=== PATIENT | female | born 1965 | race Caucasian/White ===

== ENCOUNTER 2017-08-16 15:21 | Emergency (ER) | payer OTHER ==
[~2017-08-16] VITALS: Ht 160 cm; Wt 65.8 kg
[~2017-08-16 15:21] MED LIST: PROTONIX40 M3 PO; VISTARIL50 M1 PO
--- NOTE | 2017-08-16 16:42 | RADIOLOGY REPORT ---
EXAMINATION: XR CHEST CLINICAL INFORMATION: Cough. Yellow sputum. COMPARISON: None TECHNIQUE: 2 views of the chest were obtained. FINDINGS: No significant abnormality is noted involving the heart, lungs, mediastinum, bony thorax or soft tissues. IMPRESSION: Unremarkable examination.
[2017-08-16 19:56] LABS: ABSOLUTE BASOPHIL COUNT 0 /CUMM (0.0-0.2); ABSOLUTE EOSINOPHIL COUNT 0 /CUMM (0.0-0.7); ABSOLUTE GRANULOCYTE CT 4.1 /CUMM (1.4-6.5); ABSOLUTE LYMPH COUNT 1.5 /CUMM (1.2-3.4); ABSOLUTE MONOCYTE COUNT 1.1 /CUMM (0.10-0.60); BASOPHIL % 0.7 % (0.0-2.0); EOSINOPHIL % 0.1 % (0-5); HEMATOCRIT 44.9 % (37-47); MEAN CORPUSCULAR HGB 31.3 PG (27.0-31.0); MEAN CORPUSCULAR HGB CONC 33.7 G/DL (33.0-37.0); MEAN CORPUSCULAR VOLUME 92.9 FL (81.0-99.0); MEAN PLATELET VOLUME 7.2 FL (7.4-10.4); PLATELET COUNT 220 /CUMM (130-400); RED BLOOD CELL CT 4.84 /CUMM (4.20-5.40); WHITE BLOOD CELL COUNT 6.8 /CUMM (4.8-10.8)
--- NOTE | 2017-08-16 20:58 | CT SCAN REPORT ---
EXAMINATION: CT HEAD WITHOUT CONTRAST CLINICAL INFORMATION: 52-year-old woman with new onset of headache. COMPARISON: None TECHNIQUE: Contiguous axial imaging was performed from the skull base to vertex without intravenous administration of contrast. DLP: 598 mGy-cm FINDINGS: There is no evidence of acute intracranial hemorrhage or territorial infarction. No abnormal mass effect or midline shift is seen. Aceves to white matter differentiation is well preserved. No extra-axial fluid collections are identified. The ventricles are normal in size. There is no abnormal attenuation within the brain parenchyma. The osseous structures and soft tissues are normal. A small amount of layering fluid is seen in the left maxillary sinus. IMPRESSION: No acute intracranial pathology. Left maxillary sinus disease.
--- NOTE | 2017-08-16 21:08 | ED HEAD/FACIAL INJ COMPLAINT ---
History of Present Illness General Chief Complaint: Headache Stated Complaint: SIB URGENT CARE RIGHT SIDE OF HEAD PAIN Source: patient, old records Exam Limitations: no limitations Vital Signs & Intake/Output Vital Signs & Intake/Output Vital Signs Date Time Temp Pulse Resp B/P B/P Pulse O2 O2 Flow FiO2 Mean Ox Delivery Rate 08/16 2146 98.6 89 18 142/64 99 Room Air 08/16 2128 97 Room Air 08/16 1850 99.0 08/16 1839 99.1 102 18 148/72 95 Room Air 08/16 1542 101.5 114 18 126/92 99 Room Air ED Intake and Output 08/17 0000 08/16 1200 Intake Total Output Total Balance Patient 145 lb Weight Allergies Coded Allergies: No Known Allergies (02/09/17) Reconcile Medications Amoxicillin 875 MG TABLET 1 TAB PO BID sinusitis Hydroxyzine Pamoate (Vistaril) 50 MG CAPSULE 1 CAP PO QPM PRN INSOMNIA Ibuprofen 600 MG TABLET 1 TAB PO Q6P PRN pain, fever with food Pantoprazole Sodium (Protonix) 40 MG TABLET. 1 TAB PO DAILY gerd Triage Note: 52 YEAR OLD FEMALE TO ER WITH COMPLAINTS OF SUDDEN ON SET OF R SIDE HEAD PAIN THAT STARTED YESTERDAY , LIGHT SENSITIVE, VOMITTED ON MONDAY. ALSO STATES THAT SHE HAS HAD A COUGH YELLOW SPUTUM THAT STARTED ON MONDAY AND CHILLS, TEMP 101.5 AT THIS TIME, MEDICATED WITH TYLENOL PER ORDER. Triage Nurses Notes Reviewed? yes Onset: 2 days ago Severity: moderate Location: temporal Loss of Consciousness: no loss of consciousness Associated Symptoms: cough, fever/chills, headaches, nausea/vomiting LMP (ages 10-50): post menopausal : No Patient currently breastfeeds: No HPI: 2 days prior to admission patient complains of nasal congestion productive cough of yellow sputum nausea and vomiting. Several hours prior to admission patient complained of headache light sensitivity and chills. She denies diarrhea abdominal pain chest pain shortness of breath dysuria rash bleeding. Past History Travel History Traveled to [place] past 21 day No Medical History Any Pertinent Medical History? none Neurological: NONE EENT: NONE Cardiovascular: NONE Respiratory: NONE Gastrointestinal: NONE Renal: NONE Musculoskeletal: NONE Psychiatric: NONE Endocrine: NONE Blood Disorders: NONE Cancer(s): NONE TAXICAB DRIVER/Reproductive: NONE Surgical History Surgical History: none Psychosocial History What is your primary language [place] Tobacco Use: Never used ETOH Use: denies use Illicit Drug Use: denies illicit drug use Family History Hx Contributory? No Review of Systems Review of Systems Constitutional: Reports: see HPI, chills, fever (in ED). EENTM: Reports: see HPI, nasal congestion. Respiratory: Reports: see HPI, cough, sputum production. Cardiovascular: Reports: no symptoms. GI: Reports: see HPI, nausea, vomiting. Genitourinary: Reports: no symptoms. Musculoskeletal: Reports: no symptoms. Skin: Reports: no symptoms. Neurological/Psychological: Reports: no symptoms. Hematologic/Endocrine: Reports: no symptoms. Immunologic/Allergic: Reports: no symptoms. All Other Systems: Reviewed and Negative Physical Exam Physical Exam General Appearance: well developed/nourished, alert, awake, anxious, mild distress Head: atraumatic, normal appearance, tenderness (sinus) Eyes: Bilateral: normal appearance, PERRL, EOMI. Ears, Nose, Throat: normal pharynx, normal ENT inspection, hearing grossly normal Neck: normal inspection, supple, full range of motion, lymphadenopathy (R), lymphadenopathy (L), no midline tenderness Respiratory: normal breath sounds, chest non-tender, no respiratory distress, quiet respiration, lungs clear Cardiovascular: regular rate/rhythm, normal peripheral pulses, norml femoral pulses equa Gastrointestinal: normal bowel sounds, soft, non-tender, no organomegaly Back: normal inspection, normal range of motion, no vertebral tenderness Extremities: normal inspection, normal capillary refill, normal range of motion, no edema Psychiatric: awake, alert, oriented x 3 Cranial Nerves: normal hearing, normal speech, PERRL Coordination/Gait: normal finger to nose, normal gait Motor/Sensory: no motor/sensory deficits Reflexes: 2+: bicep (R), bicep (L). Skin: intact, normal color, warm/dry Lymphatic: adenopathy Progress Differential Diagnosis: ICH Plan of Care: Orders Procedure Date/time Status MAGNESIUM 08/16 1928 Complete COMPREHENSIVE METABOLIC PANEL 08/16 1928 Complete CBC WITHOUT DIFFERENTIAL 08/16 1928 Complete Laboratory Tests 08/16/171943: Anion Gap 11, Estimated GFR > 60, BUN/Creatinine Ratio 16.7, Glucose 131 H, Calcium 9.6, Magnesium 2.0, Total Bilirubin 0.5, AST 26, ALT 14, Alkaline Phosphatase 65, Total Protein 7.2, Albumin 4.0, Globulin 3.2, Albumin/Globulin Ratio 1.3, CBC w Diff NO MAN DIFF REQ, RBC 4.84, MCV 92.9, MCH 31.3 H, MCHC 33.7, RDW 13.0, MPV 7.2 L, Gran % 60.0, Lymphocytes % 22.8, Monocytes % 16.4 H , Eosinophils % 0.1, Basophils % 0.7, Absolute Granulocytes 4.1, Absolute Lymphocytes 1.5, Absolute Monocytes 1.1 H, Absolute Eosinophils 0, Absolute Basophils 0 Diagnostic Imaging: Viewed by Me: CT Scan. Discussed w/RAD: CT Scan. Radiology Impression: No acute intracranial pathology. Left maxillary sinus disease. CXR Impression: no acute abnormality Departure Departure Time of Disposition: 2130 Disposition: HOME OR SELF CARE Condition: Stable Clinical Impression Primary Impression: Sinusitis Secondary Impressions: Fever Referrals: Estee Noriega DO (PCP/Family) Departure Forms: Customer Survey General Discharge Information Prescriptions: Current Visit Scripts Amoxicillin 1 TAB PO BID #20 TAB Ibuprofen 1 TAB PO Q6P PRN pain, fever #50 TAB with food
[2017-08-16] MEDS ORDERED: IBUPROFEN600 M1 PO (21:36)
[2017-08-16] MEDS ORDERED: AMOXICILLIN875 M1 PO (21:36)
[2017-08-16 21:47] VITALS: BP 142/64
== END 2017-08-16 21:47 ==
LOC: ERH 15:21
PROVIDERS: Emergency Medicine
DX: J32.9 Chronic sinusitis, unspecified (principal)
CPT/HCPCS: 71046; 96374; 96375; J0696; J1885